=== PATIENT | male | born 1970 | race Caucasian/White ===

== ENCOUNTER → 2017-02-03 | Outpatient (REF) ==
--- NOTE | 2017-02-04 02:48 | REP ---
Clinical: Pain and disability. Technique: AP, lateral, coned-down views of the lumbosacral spine. Findings: Mild to moderate multilevel degenerative changes include endplate sclerosis, disc space narrowing, and early osteophyte formation as well as mild hypertrophic facet changes. There is no evidence for acute fracture / compression injury or subluxation. Alignment and lordosis maintained. Impression: Mild to moderate multilevel degenerative changes. Signed by Constantin Cuba MD 02/04/2017 02:40 A
== END ==
LOC: M SMT 14:34
PROVIDERS: ATTEND Internal Medicine
DX: Z02.1 Encounter for pre-employment examination (principal)

== ENCOUNTER → 2024-04-06 | Outpatient (REF) | LOC: M PLAIMG 13:23 | PROVIDERS: ATTEND Internal Medicine | DX: M19.072 Primary osteoarthritis, left ankle and foot (principal) ==